=== PATIENT | male | born 1960 | race Caucasian/White ===

== ENCOUNTER 2016-10-14 11:33 | Outpatient (CLI) | payer MEDICAID | END 2016-10-14 11:34 | disposition home or self-care (01) | DX: R05 Cough (principal); R91.8 Other nonspecific abnormal finding of lung field ==

== ENCOUNTER 2019-05-29 21:05 | Outpatient (CLI) | payer MEDICAID | END 2019-05-29 21:06 | disposition critical access hospital (66) | LOC: EMS 21:05 | PROVIDERS: ATTEND Surgery | DX: R41.82 Altered mental status, unspecified (principal) | CPT/HCPCS: A0425; A0429 ==

== ENCOUNTER 2019-05-29 21:19 | Emergency (ER) | payer MEDICAID ==
[2019-05-29 22:23] LABS: BASOPHILS # (AUTO) 0.1 10^3/uL (0.0-0.1); BASOPHILS % (AUTO) 1.6 %; EOSINOPHILS % (AUTO) 0.3 %; HGB - HEMOGLOBIN 11.9 g/dL (14.0-18.0); LYMPHOCYTES # (AUTO) 1.1 10^3/uL (1.5-3.5); LYMPHOCYTES % (AUTO) 34.6 %; MEAN CORPUSCULAR HGB CONC 34.1 g/dL (32.0-36.0); MEAN CORPUSCULAR VOLUME 96.7 fL (80.0-94.0); MEAN PLATELET VOLUME 10.4 fL (7.4-11.4); MONOCYTES # (AUTO) 0.3 10^3/uL (0.0-1.0); MONOCYTES % (AUTO) 9.4 %; NEUTROPHILS # (AUTO) 1.7 10^3/uL (1.5-6.6); NEUTROPHILS % (AUTO) 53.8 %; PLT - PLATELET COUNT 114 10^3/uL (130-450); RED BLOOD COUNT 3.61 10^6/uL (4.70-6.10); RED CELL DISTRIBUTION WIDTH 13.2 % (12.0-15.0); WHITE BLOOD COUNT 3.2 x10^3/uL (4.8-10.8)
[2019-05-29 22:41] LABS: ALBUMIN 3.8 g/dL (3.2-5.5); ALBUMIN/GLOBULIN RATIO 1.3 (1.0-2.2); BILIRUBIN,TOTAL 0.9 mg/dL (0.2-1.0); CALCIUM 8.6 mg/dL (8.5-10.3); CREATININE 0.6 mg/dL (0.6-1.2); TOTAL PROTEIN 6.8 g/dL (6.7-8.2)
[2019-05-29 23:15] LABS: MUDS CUTOFF CONCENTRATIONS CUTOFF CONC BELOW:
[2019-05-29 23:27] LABS: BILIRUBIN,URINE NEGATIVE (NEGATIVE); GLUCOSE, URINE (UA) NEGATIVE (NEGATIVE); KETONES,URINE (UA) NEGATIVE (NEGATIVE); LEUKOCYTE ESTERASE, URINE NEGATIVE (NEGATIVE); NITRITE,URINE NEGATIVE (NEGATIVE); OCCULT BLOOD,URINE NEGATIVE (NEGATIVE); PH,URINE 5.5 PH (5.0-7.5); PROTEIN,URINE NEGATIVE (NEGATIVE); UROBILINOGEN,URINE 0.2 (NORMAL) E.U./dL (NORMAL)
[2019-05-29 23:29] LABS: CLARITY,URINE CLEAR (CLEAR)
[2019-05-29 23:39] LABS: AMPHETAMINE SCREEN,URINE NEGATIVE (NEGATIVE); BENZODIAZEPINES SCREEN, URINE NEGATIVE (NEGATIVE); COCAINE SCREEN URINE NEGATIVE (NEGATIVE); METHADONE SCREEN, URINE NEGATIVE (NEGATIVE); METHAMPHETAMINES SCREEN, URINE NEGATIVE (NEGATIVE); OPIATE SCREEN, URINE NEGATIVE (NEGATIVE); OXYCODONE SCREEN, URINE NEGATIVE (NEGATIVE); PROPOXYPHENE SCREEN, URINE NEGATIVE (NEGATIVE); TRICYCLIC ANTIDEPRESSANT,URINE NEGATIVE (NEGATIVE)
--- NOTE | 2019-05-29 23:53 | ED Physician Documentation ---
History of Present Illness - Stated complaint Stated Complaint: HBD - Chief complaint Chief Complaint: General - History obtained from History obtained from: Patient, EMS - History of Present Illness Timing: Today - Additonal information Additional information: 58-year-old male with history of alcoholism drinks beer and he states that he had his usual 20 pack of Budweiser today and he was intoxicated enough that he soiled himself and his roommate has kicked him out of the house. He has recently had a DUI. Patient denies any use of hard alcohol and states that he only drinks beer and the last time that he was sober was for about a year and that was 4 years ago. He states that he has gone through withdrawal both in a detox facility and by himself and that he usually stops cold turkey. He has been in treatment previously in 3 different places. Review of Systems Constitutional: denies: Fever Ears: denies: Ear pain Nose: denies: Congestion Throat: denies: Sore throat Cardiac: denies: Chest pain / pressure Respiratory: denies: Dyspnea, Cough GI: denies: Abdominal Pain, Nausea, Vomiting, Constipation, Diarrhea : denies: Dysuria Skin: denies: Rash Musculoskeletal: denies: Neck pain, Back pain, Extremity pain Neurologic: denies: Generalized weakness, Focal weakness, Numbness Psychiatric: denies: Depressed, Suicidal, Homicidal PD PAST MEDICAL HISTORY - Past Medical History Past Medical History: Yes - Past Surgical History Past Surgical History: No - Present Medications Home Medications: Ambulatory Orders Medication Instructions Recorded Confirmed oxyCODONE/ACET 5/325 [Percocet 5 1 - 2 each PO Q6H PRN #15 tablet 03/16/16 mg/325 mg] - Allergies Allergies/Adverse Reactions: Allergies Allergy/AdvReac Type Severity Reaction Status Date / Time No Known Drug Allergies Allergy Verified 03/16/16 19:56 - Social History Does the pt smoke?: Yes Smoking Status: Current every day smoker Does the pt drink ETOH?: Yes ETOH Use: Beer Does the pt have substance abuse?: Yes - Immunizations Immunizations are current?: Yes - POLST Patient has POLST: No PD ED PE NORMAL - Vitals Vital signs reviewed: Yes (hypertensive ) - General General: Alert and oriented X 3, No acute distress, Well developed/nourished - HEENT HEENT: Atraumatic, PERRL, EOMI, Other (dry mucous membranes ) - Neck Neck: Supple, no meningeal sign - Cardiac Cardiac: RRR, No murmur - Respiratory Respiratory: No respiratory distress, Clear bilaterally - Abdomen Abdomen: Soft, Non tender - Back Back: No CVA TTP, No spinal TTP - Derm Derm: Normal color, Warm and dry, No rash - Extremities Extremities: No deformity, Normal ROM s pain, No edema, No calf tenderness / cord - Neuro Neuro: Alert and oriented X 3, 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, No motor deficit, No sensory deficit, Normal speech Eye Opening: Spontaneous Motor: Obeys Commands Verbal: Oriented GCS Score: 15 - Psych Psych: Normal mood, Normal affect Results - Vitals Vitals: Vital Signs - 24 hr 05/29/19 05/30/19 21:20 00:01 Temperature 36.5 C 36.2 C L Heart Rate 68 77 Respiratory 16 18 Rate Blood Pressure 123/83 H 117/90 H O2 Saturation 97 97 Oxygen O2 Source Room air - Labs Labs: Laboratory Tests 05/29/19 05/29/19 05/29/19 22:15 22:15 23:05 WBC 3.2 L RBC 3.61 L Hgb 11.9 L Hct 34.9 L MCV 96.7 H MCH 33.0 H MCHC 34.1 RDW 13.2 Plt Count 114 L MPV 10.4 Neut # (Auto) 1.7 Lymph # (Auto) 1.1 L [place] # (Auto) 0.3 Eos # (Auto) 0.0 Baso # (Auto) 0.1 Absolute Nucleated RBC 0.00 Nucleated RBC % 0.0 Sodium 136 Potassium 3.8 Chloride 97 L Carbon Dioxide 26 Anion Gap 13.0 BUN 5 L Creatinine 0.6 Estimated GFR (MDRD) 138 Glucose 110 H Calcium 8.6 Total Bilirubin 0.9 AST 83 H ALT 50 Alkaline Phosphatase 67 Total Protein 6.8 Albumin 3.8 Globulin 3.0 Albumin/Globulin Ratio 1.3 Lipase 37 Urine Color YELLOW Urine Clarity CLEAR Urine pH 5.5 Ur Specific [place] <=1.005 Urine Protein NEGATIVE Urine Glucose (UA) NEGATIVE Urine Ketones NEGATIVE Urine Occult Blood NEGATIVE Urine Nitrite NEGATIVE Urine Bilirubin NEGATIVE Urine Urobilinogen 0.2 (NORMAL) Ur Leukocyte Esterase NEGATIVE Ur Microscopic Review NOT INDICATED Urine Culture Comments NOT INDICATED Urine Opiates Screen NEGATIVE Ur Oxycodone Screen NEGATIVE Urine Methadone Screen NEGATIVE Ur Propoxyphene Screen NEGATIVE Ur Barbiturates Screen NEGATIVE Ur Tricyclics Screen NEGATIVE Ur Phencyclidine Scrn NEGATIVE Ur Amphetamine Screen NEGATIVE U Methamphetamines Scrn NEGATIVE U Benzodiazepines Scrn NEGATIVE Urine Cocaine Screen NEGATIVE U Cannabinoids Screen NEGATIVE Ethyl Alcohol 401.4 PD MEDICAL DECISION MAKING - ED course Complexity details: reviewed old records, reviewed results, re-evaluated patient, considered differential, d/w patient ED course: 58-year-old alcoholic male presents to the emergency department with acute intoxication and that he has been kicked out of his house. He indicates that he does pay rent there but his name is not on the lease and a friend has offered to take the patient in this evening. The patient wishes to leave the emergency department he states that he does understand that he will need to stop drinking and he is given resources for alcohol treatment. He refuses intravenous banana bag. The patient examination is done after the patient has been in the department for several hours and despite a blood alcohol of 401 the patient is conversant and not slurring his speech and making sense. He is discharged into the care of a friend. Departure - Departure Disposition: 01 Home, Self Care Clinical Impression: Alcohol intoxication Qualifiers: Complication of substance-induced condition: uncomplicated Qualified Code(s): F10.920 - Alcohol use, unspecified with intoxication, uncomplicated Condition: Stable Instructions: ED Alcohol Intoxication Follow-Up: [facility] [Provider Group] Discharge Date/Time: 05/29/19 23:56
[2019-05-30 00:01] VITALS: BP 117/90
== END 2019-05-29 23:56 | disposition home or self-care (01) ==
LOC: EDUNIT# → ED 21:19
DX: F10.229 Alcohol dependence with intoxication, unspecified (principal); Y90.8 Blood alcohol level of 240 mg/100 ml or more; F17.200 Nicotine dependence, unspecified, uncomplicated
CPT/HCPCS: 36415; 80053; 80306; 80320; 81001; 81003; 83690; 85025; 87086; 99283; 99284

== ENCOUNTER 2024-05-21 14:15 | Outpatient (CLI) | payer SELFPAY ==
--- NOTE | 2024-05-21 16:58 | XRAY Report ---
PROCEDURE: Hand 1-2V RT INDICATIONS: PAIN IN RIGHT HAND TECHNIQUE: 2 views of the hand(s) acquired. COMPARISON: None. FINDINGS: Bones: No acute fracture or dislocation. Mild diffuse IP joint space narrowing and tiny juxta-articul ar osteophytosis. No osseous erosions. Soft tissues: No suspicious soft tissue calcifications or masses. IMPRESSION: 1.No acute bony abnormality. If pain persists with conservative management, consider repeat radiograp hs in 10-14 days or cross-sectional imaging. 2.Mild diffuse IP joint osteoarthritis. Reviewed by: Lucy Augustine MD on 05/21/2024 3:57 PM AKDT Approved by: Lucy Augustine MD on 05/21/2024 3:57 PM AKDT Station ID: [id number]
--- NOTE | 2024-05-21 17:03 | XRAY Report ---
PROCEDURE: Wrist 1-2V RT INDICATIONS: PAIN IN RIGHT WRIST TECHNIQUE: 2 views of the wrist were acquired. COMPARISON: None. FINDINGS: Bones: No fractures or dislocations. Increased sclerosis of the lunate with collapse. Mild first CM C joint space narrowing and articular osteophytosis. Mild narrowing of the radiocarpal joint. No susp icious bony lesions. Soft tissues: No suspicious soft tissue calcifications or masses. IMPRESSION: 1.No acute bony abnormality. If there is anatomic snuff box tenderness, consider wrist immobilization and repeat radiographs in 10-14 days or cross-sectional imaging now. If pain persists with conservat omar management, consider repeat radiographs in 10-14 days or cross-sectional imaging. 2.Increased sclerosis of the lunate with collapse compatible with osteonecrosis (Kienbock's disease). 3.Mild first CMC joint osteoarthritis. Mild radiocarpal joint space narrowing. Reviewed by: Lucy Augustine MD on 05/21/2024 4:02 PM SARA Approved by: Lucy Augustine MD on 05/21/2024 4:02 PM SARA Station ID: [id number]
== END 2024-05-21 14:30 | disposition home or self-care (01) ==
LOC: DI.N 14:15
PROVIDERS: ATTEND Physician Assistant
DX: M19.041 Primary osteoarthritis, right hand (principal); M18.11 Unilateral primary osteoarthritis of first carpometacarpal joint, right hand; M89.8X3 Other specified disorders of bone, forearm

== ENCOUNTER 2025-01-02 21:09 | Inpatient (IN) ==
[2025-01-03 00:36] LABS: ALBUMIN 3.8 g/dL (3.2-5.5); CALCIUM 9.7 mg/dL (8.5-10.3); CARBON DIOXIDE - CO2 18 mmol/L (21-32); CHLORIDE 92 mmol/L (101-111); POTASSIUM 3.8 mmol/L (3.5-4.5); SODIUM 128 mmol/L (135-145)
[2025-01-03 00:41] LABS: ETOH - ETHANOL < 10.0 mg/dL
[2025-01-03 00:45] LABS: ALBUMIN/GLOBULIN RATIO 1.5 (1.0-2.2); ALKALINE PHOSPHATASE 72 IU/L (42-121); ALT ALANINE AMINOTRANSFERASE 50 IU/L (10-60); AST ASPARTATE AMINOTRANSFERASE 72 IU/L (10-42); BUN - BLOOD UREA NITROGEN 22 mg/dL (6-20); CK- CREATINE KINASE 1536 IU/L (30-223); CREATININE 0.7 mg/dL (0.6-1.3); GFR - MDRD 114 (>89); GLUCOSE 67 mg/dL (74-104); LIPASE < 10 U/L (11-82); TOTAL PROTEIN 6.3 g/dL (6.4-8.9)
[2025-01-03] MEDS: SODIUM CHLORIDE 0.9% 1,000 ML IV STA ×2 (01:02→01:30)
--- NOTE | 2025-01-03 01:45 | CT Report ---
PROCEDURE: CT Cervical Spine WO INDICATIONS: Found down, +etoh TECHNIQUE: Noncontrast 3 mm thick sections acquired from the skull base to the T4 level. Sagittal and coronal r eformats were then constructed. For radiation dose reduction, the following was used: automated exp osure control, adjustment of mA and/or kV according to patient size. COMPARISON: 01/01/2025 FINDINGS: Image quality: Excellent. Bones: No fractures or dislocations. Visualized superior ribs are intact. Soft tissues: Prevertebral soft tissues are normal in thickness. No paravertebral hematomas. No ap ical pneumothoraces. Peripheral groundglass in the right lung apex. IMPRESSION: No acute, displaced fracture or traumatic subluxation. Groundglass opacities in the right lung apex, suggestive of viral/atypical pneumonia. Reviewed by: Artemio Hearn MD on 01/03/2025 1:44 AM PDT Approved by: Artemio Hearn MD on 01/03/2025 1:44 AM PDT Station ID: [id number]
--- NOTE | 2025-01-03 01:47 | CT Report ---
PROCEDURE: CT Head WO INDICATIONS: Head trauma, +Etoh TECHNIQUE: Noncontrast 4.5 mm thick angled axial sections acquired from the foramen magnum to the vertex. For r adiation dose reduction, the following was used: automated exposure control, adjustment of mA and/or kV according to patient size. COMPARISON: 01/01/2025 FINDINGS: Image quality: Excellent. CSF spaces: Basal cisterns are patent. No extra-axial fluid collections. Ventricles are normal in size and shape. Brain: No midline shift. No intracranial mass effect or hemorrhage. Kimball-white matter interface is normal. Skull and face: Calvarium and visualized facial bones are intact, without suspicious lesions. Sinuses: Visualized sinuses and mastoids are clear. IMPRESSION: No acute intracranial pathology. Reviewed by: Artemio Hearn MD on 01/03/2025 1:46 AM PDT Approved by: Artemio Hearn MD on 01/03/2025 1:46 AM PDT Station ID: [id number]
--- NOTE | 2025-01-03 04:15 | ED Physician Documentation ---
History of Present Illness Stated complaint Stated Complaint: FALL Chief complaint Chief Complaint: Trauma Hd/Nk Additonal information Additional information: 64-year-old male brought in by police after being found down near the [facility] land in. Known history of alcohol abuse. 2 previous ER evaluations over the course of the last 2 days for altered mentation and alcohol related complaints. Patient alert, orientated x 2, GCS 14. Denies head injury but has notable hematoma to scalp. History limited by altered mentation. [place] Coma Scale Assess Eye opening: Spontaneous Verbal response: Confused Motor response: Obeys Commands Total score: 14 Review of Systems Status of ROS: unobtainable due to mental status Meds/Allgy Home Medications Ambulatory Orders Medication Instructions Recorded Confirmed No Known Home Medications 01/01/25 01/01/25 Allergies Allergies Allergy/AdvReac Type Severity Reaction Status Date / Time No Known Drug Allergies Allergy Verified 01/02/25 21:14 PFSH Active Problems All Active Problems (Updated 01/03/25 @ 04:33 by Roderick Guardado MD) Closed head injury (Acute) Alcohol abuse (Acute) Alcohol withdrawal (Acute) Acute alteration in mental status (Acute) Medical History Medical History (Updated 01/03/25 @ 04:33 by Roderick Guardado MD) Chronic knee pain Surgical History Surgical History (Updated 01/01/25 @ 08:37 by Parviz Galeano RN) No pertinent past surgical history Social History Social History (Updated 01/01/25 @ 08:37 by Parviz Galeano RN) Smoking Status: Current every day smoker Number of Years Smoked: 40 How many cigarettes a day do you smoke? (20 cigarettes=1 Pk): 40 Do you dip or chew tobacco?: No Do you vape?: No Living arrangement: Other Marital Status: Single Relationship: Level: Independent Do you feel safe in your home environment?: Yes Suffered physical, verbal, emotional, or financial abuse?: No History of Abuse: No ETOH Use: Frequency: Daily Number of Amount/day: 12 Substance Use: denies use POLST Patient has POLST: No Exam Exam Vital Signs: Vital Signs x48h Temp Pulse Resp BP Pulse Ox 01/03/25 01:00 78 22 137/97 H 99 01/02/25 23:20 72 22 127/89 99 01/02/25 21:14 36.8 C 80 18 144/55 H 100 Constitutional normal general appearance HENMT Frontal scalp hematoma. Negative hemotympanum, negative Mac sign, negative raccoon sign. 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 Skin skin color normal Results Vitals Vitals: Vital Signs - 24 hr 01/02/25 21:14 01/02/25 23:20 01/03/25 01:00 Temperature 36.8 C Temperature Source Tympanic Pulse Rate 80 72 78 Respiratory Rate 18 22 22 Blood Pressure 144/55 H 127/89 137/97 H O2 Saturation 100 99 99 Oxygen Delivery Method O2 Source Room air Room air Room air Pain Intensity 0 01/03/25 02:00 Temperature Temperature Source Pulse Rate Respiratory Rate Blood Pressure O2 Saturation Oxygen Delivery Method Room Air O2 Source Pain Intensity Oxygen O2 Source Room air Labs Labs: Laboratory Tests 01/03/25 01/03/25 00:19 04:00 Sodium 128 L 130 L Potassium 3.8 3.6 Chloride 92 L 98 L Carbon Dioxide 18 L 17 L Anion Gap 18.0 H 15.0 H BUN 22 H 19 Creatinine 0.7 0.6 Estimated GFR (MDRD) 114 136 Glucose 67 L 64 L Calcium 9.7 8.3 L Total Bilirubin 2.0 H AST 72 H ALT 50 Alkaline Phosphatase 72 Total Creatine Kinase 1536 H* 1048 H* Total Protein 6.3 L Albumin 3.8 Globulin 2.5 Albumin/Globulin Ratio 1.5 Lipase < 10 L Ethyl Alcohol < 10.0 PD Medical Decision Making ED course Complexity details: reviewed old records, reviewed results, re-evaluated patient, considered differential and d/w patient ED course: 64-year-old with known history of alcohol abuse presents to the emergency department with altered mentation. Found down by police. Multiple recent ER evaluations including 2 in the last 48 hours for alcohol related complaints or falls. Afebrile, hemodynamically stable on arrival to the emergency department. Somewhat confused but no tremulousness, tachycardia, hypertension initially appreciated on arrival. No clear signs alcohol withdrawal on arrival. Lab work with a chronic hyponatremia, mild hypokalemia, and elevated CK. Received [address] head and C-spine are benign. While in the emergency department patient demonstrates increasing confusion now with a CIWA score of 11. I have started a lorazepam protocol for him. He is given thiamine, folic acid. Care discussed with the hospitalist service who graciously agreed to hospitalize for further evaluation and treatment. Discharge Plan Discharge Patient Disposition: 66 [facility] DC/Xfer Clinical Impression: Acute alteration in mental status Alcohol withdrawal Qualifiers: Complication of substance-induced condition: uncomplicated Qualified Code(s): F10.930 - Alcohol use, unspecified with withdrawal, uncomplicated Prescriptions: No Action No Known Home Medications Print Language: Irish
[2025-01-03 04:18] LABS: CALCIUM 8.3 mg/dL (8.5-10.3); CREATININE 0.6 mg/dL (0.6-1.3); POTASSIUM 3.6 mmol/L (3.5-4.5)
[2025-01-03] MEDS ORDERED: FOLIC ACID 5 MG/1 ML 10ML MDV ONE (04:52)
[2025-01-03] MEDS ORDERED: THIAMINE 100 MG/1 ML 2 ML MDV ONE (04:52)
[2025-01-03] MEDS ORDERED: SODIUM CHLORIDE FLUSH 0.9% 10 ML SYRINGE IVP PRN (05:13)
[2025-01-03] MEDS ORDERED: ONDANSETRON 4 MG/2 ML VIAL IVP PRN (05:15)
[2025-01-03] MEDS ORDERED: ONDANSETRON ODT 4 MG TABLET TL PRN (05:15)
[2025-01-03] MEDS ORDERED: LORazepam 1 MG TABLET PO PRN (05:17)
[2025-01-03] MEDS ORDERED: LORazepam 2 MG/ML VIAL IVP PRN (05:17)
[2025-01-03] MEDS: THIAMINE INJ 100 MG, FOLIC ACID INJ 1 MG in SODIUM CHLORIDE 0.9% 1,000 ML IV STA (05:18)
--- NOTE | 2025-01-03 05:29 | HISTORY & PHYSICAL EXAMINATION ---
Chief Complaint Chief Complaint Chief Complaint: AMS, Fall History of Present Illness Admitted From Admitted From:: ER History Obtained From Records Reviewed: Yes History obtained from: Pt, staff, chart Exam Limitations: Virtual exam History of Present Illness HPI Comment/Other: H&P was conducted via video remotely, using [employer]. [place] is in [place] Physician is in [place]. RN is at bedside, helping. 64 yo M with PMH ETOH abuse, tobacco use presented to the ER via Police d/t AMS, Fall. Pt was seen in the ER 2x yesterday. In the AM, EMS brought him to the ER for AMS b/c in public, he was found to be confused with difficuity answering questions, found to be in mild alcohol withdrawal. In the PM, he went to local gas station, bought alcohol, drank the alcohol and then fell down and hit his head. No LOC. Today, the police found him down on the ground and brought him in. Pt says that he tripped on a step and fell down. He hurt his RUE. When he first arrived in ER, his GCS was 14 and he was a little confused.While in the ER, his confusion increased and he became shaky, and his GCS was 11. He was given Ativan and his symptoms improved. He currently denies all other complaints. He denies shakiness, though RN reports that when he stands, he is very shaky and needs 2 person assist to transfer him. Pt says this is new. Pt says that he last remembers drinking ETOH 4 days ago (different than ER story). He is not interested in quitting ETOH. He does not want to go to Rehab for PT or for ETOH W/D. He usually drinks 4 beers/day. He says he has never gone into DTs. He denies cough/CP/SOB/F/c, abdo pain/NV/. In the ER, Na 128, Glc 67, CK [id number], Ethyl ETOH <19 (yesterday, level was 12.3) CT Head: NAD Pt was given IVF, Zofran, Ativan, Tylenol, thiamine in the ER. Review of Systems Status of ROS: 10 or more systems reviewed and unremarkable except as noted in history and below PFSH Active Problems All Active Problems (Updated 01/03/25 @ 04:33 by Roderick Guardado MD) Closed head injury (Acute) Alcohol abuse (Acute) Alcohol withdrawal (Acute) Acute alteration in mental status (Acute) Medical History Medical History (Updated 01/03/25 @ 04:33 by Roderick Guardado MD) Chronic knee pain Surgical History Surgical History (Updated 01/01/25 @ 08:37 by Parviz Galeano, RN) No pertinent past surgical history Social History Social History (Updated 01/01/25 @ 08:37 by Parviz Galeano, RN) Smoking Status: Current every day smoker Number of Years Smoked: 40 How many cigarettes a day do you smoke? (20 cigarettes=1 Pk): 40 Do you dip or chew tobacco?: No Do you vape?: No Living arrangement: Other Marital Status: Single Relationship: Level: Independent Do you feel safe in your home environment?: Yes Suffered physical, verbal, emotional, or financial abuse?: No History of Abuse: No ETOH Use: Frequency: Daily Number of Amount/day: 12 Substance Use: denies use POLST Patient has POLST: No Meds/Allgy Home Medications Ambulatory Orders Medication Instructions Recorded Confirmed No Known Home Medications 01/01/25 01/01/25 Allergies Allergies Allergy/AdvReac Type Severity Reaction Status Date / Time No Known Drug Allergies Allergy Verified 01/02/25 21:14 Exam Exam Vital Signs: Vital Signs x48h Pulse Resp BP Pulse Ox 01/03/25 05:10 77 22 128/78 99 01/03/25 01:00 78 22 137/97 H 99 01/02/25 23:20 72 22 127/89 99 Constitutional normal general appearance HENMT normocephalic Per ER Provider: Frontal scalp hematoma. Negative hemotympanum, negative Mac sign, negative raccoon sign. 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 Conclusion/Plan Problem List (1) Alcohol withdrawal: Plan: Alcohol W/D Alcohol Abuse Tremors AMS Frequent Falls Weakness RUE Wound -Ethyl ETOH <19 (yesterday, level was 12.3) -CT Head: NAD -Pt was given IVF, Zofran, Ativan, Tylenol, thiamine in the ER. -admit to Obs/Med Tele -CIWA protocol with Ativan PRN -MVI, thiamine, Folate -SW consult -pt says he has no interest in Rehab or in stopping ETOH -PT/OT consult -continue RUE wound care Rhabdomyolysis -CK [id number] -continue IVF Hyponatremia -Na 128, chronic -continue IVF Hypoglycemia -Glc 67 -change IVF to D5NS VTE Prophylaxis: SCDs only d/t pt's recent thrombocytopenia Code Status: Full Code ~Federica Wagner MD Hospitalist Qualifiers: Complication of substance-induced condition: uncomplicated Qualified Code(s): F10.930 - Alcohol use, unspecified with withdrawal, uncomplicated Lab Results Lab results reviewed: Yes 01/03/25 04:00
[2025-01-03] MEDS: LORazepam 2 MG/ML VIAL IVP PRN (05:30)
[2025-01-03] MEDS ORDERED: SODIUM CHLORIDE 0.9% 1,000 ML IV SCH (06:00)
[2025-01-03] MEDS: THIAMINE 100 MG TABLET PO SCH (09:18)
[2025-01-03] MEDS: PRENATAL VITAMIN TABLET PO SCH (09:18)
[2025-01-03] MEDS: DEXTROSE 5%-0.9% NACL 1,000 ML IV SCH (09:19)
[2025-01-03] MEDS: SODIUM CHLORIDE FLUSH 0.9% 10 ML SYRINGE IVP SCH (09:19)
--- NOTE | 2025-01-03 12:09 | PHARMACY PROGRESS NOTE ---
Best Possible Medication History Admit Date and Time: 01/03/25 0510 Home Medications Medication Instructions Recorded Confirmed Type No Known Home Medications 01/01/25 01/03/25 History Processed by: Pharmacy Medications reviewed in ED?: No Medication History completed: Yes Patient Interview: Pt unable to participate Secondary Source(s): Caregiver and Insurance records [facility] Statement: As the person ultimately responsible for medication therapy, providers are able to order a medication from an existing home medication list in [facility] via the "Reconcile Routine" prior to Confirmation of that medication by user support specialist. Such practice is discouraged except when the physician, in their clinical judgment, deems that a medical need exists for a medication without regard to previous use.
--- NOTE | 2025-01-03 14:45 | PROVIDER PROGRESS NOTE ---
<Statement entered by Sanjeev Brandon MD - 01/03/25 16:24> I have examined the pt and reviewed the EMR. I agree with the findings and plan of care below with the following additions and corrections. 64 yo M with pmhx of etoh use d/o, tobacco use disorder BIBEMS after found down. Reportedly fell and hit head but no LOC. He has required infrequent doses of ativan overnight and this am. Not eating much. Pt reports mild cough. Feels better. States he lives in [place] and has no family or friends he wants us to contact. On exam: middle aged man sitting in bed, NAD, sclera anicteric, MMM Lungs: diffuse crackles throughout R lung villagran, nonlabored, good air entry RRR, S1S2, no edema alert, slow mentation, oriented to person, year, not president, not city. Poor memory and insight. Answers questions with few word phrases and does not engage much in interview. Follows commands. No tremor or tongue fasciculations. Strength 5/5 UE and LE bilat. Labs and imaging reviewed. 1. etoh use d/o and withdrawal, withdrawal delirium: continue ativan prn per CIWA, thiamine, MVI. Obtain utox. Continue addiction counseling and offer outpt treatment resources as sensorium clears. Appreciate SW help. 2. rhabdomyolysis: mild. CPK 1,500 on arrival and trending down, and this is below the level expected to cause renal injury. He was on the ground for what appears to be a few hours. Continue D5 NS100 ml/hr for now. 3. hyponatremia: likely hypovolemic based on history. Close to euvolemic now. Na improving with ivf. BMP in am. 4. multifocal bacterial pneumonia: may be aspiration given history. COnsider pneumonitis vs pneumonia. Mild leukocytosis, no fever. Start CTX and azithromycin. obtain viral respiratory PCR panel. 5. macrocytic anemia: mild, likely due to etoh. Obtain B12 in am. 6. transaminitis, hyperbilirubinemia: etoh related liver injury. Trend LFT. Obtain RUQ US. Obtain viral hepatitis serologies. dvt ppx: SQH Dispo: Pending improvement in withdrawal delirium, PT/OT eval for weakness. Subjective Prog Note Date Prog Note Date: 01/03/25 Prog Note Time: 11:54 Subjective Pt reports feeling: Improved Subjective: Himanshu is a 64-year-old houseless male with a history of alcohol abuse and tobacco abuse who presented to the ED found down by police at [facility] in [place]. He has AMS, tremors, and nausea. No fever or chills. He visited the ED twice recently on 01/01 d/t altered mentation and alcohol intoxication. History is limited d/t AMS. The patient's CIWA score on admission was 18 and Ativan protocol was started. He was given IV fluids and thiamine in ED. He declined rehab, and has a history of multiple stints in rehab according to his medical record. His head CT was normal. C-spine CT showed ground glass opacities in the apex of right lung, but otherwise negative for C-spine fracture. Patient was ANO x2 with GCS 14 in ED. Current Medications Current Medications Current Medications: Current Medications Generic Name Dose Route Start Last Admin Trade Name Freq PRN Reason Stop Dose Admin Acetaminophen 650 mg 01/03/25 05:15 Acetaminophen 325 Mg Tablet PO Q4HR PRN Pain 1 to 4, or Fever Dextrose/Sodium Chloride 1,000 mls @ 100 mls/hr 01/03/25 06:00 01/03/25 09:19 D5ns IV 100 mls/hr .Q10H GEORGINA Administration Lorazepam 2 mg 01/03/25 04:05 01/03/25 05:30 Lorazepam 2 Mg/Ml Vial IVP 2 mg PRN PRN Administration Alcohol Withdrawal Lorazepam 2 mg 01/03/25 05:17 Lorazepam 2 Mg/Ml Vial IVP Q30M PRN CIWA >8 Protocol Lorazepam 2 mg 01/03/25 05:17 Lorazepam 1 Mg Tablet PO Q1H PRN CIWA > 8 Protocol Ondansetron HCl 4 mg 01/03/25 05:15 Ondansetron Odt 4 Mg Tablet TL Q6HR PRN Nausea / Vomiting Ondansetron HCl 4 mg 01/03/25 05:15 Ondansetron 4 Mg/2 Ml Vial IVP Q6HR PRN Nausea / Vomiting Multivit/Folic Acid/Iron 1 tab 01/03/25 09:00 01/03/25 09:18 Vitamin Tablet PO 1 tab DAILY GEORGINA Administration Sodium Chloride 10 ml 01/03/25 05:13 Sodium Chloride Flush 0.9% 10 Ml Syringe IVP PRN PRN NEEDED PER PROVIDER ORDERS Sodium Chloride 10 ml 01/03/25 09:00 01/03/25 09:19 Sodium Chloride Flush 0.9% 10 Ml Syringe IVP 10 ml 0100,0900,1700 GEOGRINA Administration Thiamine HCl 100 mg 01/03/25 09:00 01/03/25 09:18 Thiamine 100 Mg Tablet PO 100 mg DAILY GEORGINA Administration Objective Vital Signs/Intake & Output Reviewed Vital Signs: Yes Vital Signs: Vital Signs x48h Temp Pulse Pulse Pulse Resp BP BP 01/03/25 08:51 37.3 C 90 22 120/68 01/03/25 06:15 37.8 C 98 22 114/73 01/03/25 05:40 102 H 22 134/79 H 01/03/25 05:10 77 22 128/78 Pulse Ox 01/03/25 08:51 98 01/03/25 06:15 96 01/03/25 05:40 99 01/03/25 05:10 99 Intake & Output: Intake & Output 12/31/24 01/01/25 01/02/25 01/03/25 23:59 23:59 23:59 23:59 Intake Total 3121.2 / 3121.2 Balance 3121.2 / 3121.2 Weight (kg) 72.575 kg Objective General Appearance: positive Mild distress and Other (slightly diaphoretic) Eyes Bilateral: positive PERRL Respiratory: positive Other (Right lung wheezes and crackles, krystal. apex. ) Cardiovascular: positive Regular rate & rhythm Abdomen: positive Non-tender and No distention Skin: positive Color nml and Diaphoresis Extremities: positive Nml appearance and Other (Patient complained of bilateral knee pain.) Neurologic/Psychiatric: positive Disoriented to time, Weakness and Other (ANO x2 Patient could not name current president. ) Lab Results 01/03/25 04:00 Other Labs: Lab Results x24hrs 01/03/25 01/03/25 01/03/25 Range/Units 11:21 04:00 00:19 Sodium 130 L 128 L (135-145) mmol/L Potassium 3.6 3.8 (3.5-4.5) mmol/L Chloride 98 L 92 L (101-111) mmol/L Carbon Dioxide 17 L 18 L (21-32) mmol/L Anion Gap 15.0 H 18.0 H (6-13) BUN 19 22 H (6-20) mg/dL Creatinine 0.6 0.7 (0.6-1.3) mg/dL Estimated GFR (MDRD) 136 114 (>89) Glucose 64 L 67 L (74-104) mg/dL POC Whole Bld Glucose 92 (70-100) mg/dL Calcium 8.3 L 9.7 (8.5-10.3) mg/dL Total Bilirubin 2.0 H (0.2-1.0) mg/dL AST 72 H (10-42) IU/L ALT 50 (10-60) IU/L Alkaline Phosphatase 72 (42-121) IU/L Total Creatine Kinase 1048 H* 1536 H* (30-223) IU/L Total Protein 6.3 L (6.4-8.9) g/dL Albumin 3.8 (3.2-5.5) g/dL Globulin 2.5 (2.1-4.2) g/dL Albumin/Globulin Ratio 1.5 (1.0-2.2) Lipase < 10 L (11-82) U/L Ethyl Alcohol < 10.0 mg/dL Diagnostic Imaging Diagnostic Imaging Results: positive Final report reviewed ABX Reporting Has patient been on IV antibiotics over the past 48 hours?: No Assessment/Plan Problem List (1) Alcohol withdrawal: Impression: Patient was found down after fall and intoxication by police in [place] and brought into ED. His CIWA score was 18 in ED. AW Ativan protocol was started. IV fluids and thiamine were administered in ED. On admission, patient was confused and tremulous. 2mg IV Q30M PRN Ativan, folic acid, thiamine, Tylenol PRN, and ondansetron PRN, and daily vitamin were administered. On exam, patient still has mild tremor, weakness, and is ANOx1--disoriented to place and time. Patient's ethyl alcohol level is currently less than 10.0 Patient's AST to 72 IU/L is elevated d/t chronic alcohol abuse. Patient's total bilirubin was elevated at 2.0 mg/dL d/t chronic alcohol abuse. * We will continue to monitor for improvement in CIWA score, tremor, AMS and * Continue treatment with Ativan per CIWA protocol PRN. * Vitamin replenishment: thiamine, vitamin and folate. * Urine toxicology ordered. * Recheck labs 01/04. Qualifiers: Complication of substance-induced condition: uncomplicated Qualified Code(s): F10.930 - Alcohol use, unspecified with withdrawal, uncomplicated (2) CAP (community acquired pneumonia): Impression: Bilateral infiltrates on CXR indicate likely pneumonia. On exam, patient had wheezing and crackles in both lungs. * Administer IV ceftriaxone and azithromycin PO. * Recheck WBCs and clinical status on 01/04. Qualifiers: Laterality: unspecified laterality Qualified Code(s): J18.9 - Pneumonia, unspecified organism (3) Rhabdomyolysis: Impression: In ED, patient's creatine kinase was elevated at 1536 IU/L, likely due to fall and alcohol abuse. CK decreased to 1048 IU/L. Kidney function was spared: Creatinine 0.6 mg/dL; GFR 136; BUN 19 mg/dL. * We will continue to monitor his kidney function with repeat labs 01/04. Qualifiers: Encounter type: initial encounter Rhabdomyolysis type: traumatic Q ualified Code(s): T79.6XXA - Traumatic ischemia of muscle, initial encounter (4) Hyponatremia: Impression: Patient's sodium on admission was 128 mmol/L, but has increased to 130 mmol/L likely d/t chronic alcohol abuse. He has been given IV fluids. * We will recheck labs on 01/04. (5) High anion gap metabolic acidosis: Impression: Patient's anion gap was 18.0 on admission and is now 15.0, indicating metabolic acidosis possibly due to chronic alcohol abuse. * We will recheck labs 01/04. (6) Closed head injury: Impression: Patient reportedly fell and suffered head injury on 01/01 when he first presented to ED. Head CT was normal. C-spine CT was normal except ground glass opacities in apex of right lung. Qualifiers: Encounter type: initial encounter Qualified Code(s): S09.90XA - Unspecified injury of head, initial encounter (7) Tobacco use disorder: Impression: Patient reportedly smokes 2 packs (40 cigarettes) daily and has for 40 years. * Tobacco cessation counseling will be offered and therapies such as nicotine patches or varenicline Rx. (8) Neutrophilia: Impression: Patient has elevated WBCs (11.1) and neutrophilia (9.7) possibly due to acute lung infection, dehydration. * Patient is being treated with Recheck labs 01/04. (9) Macrocytic anemia: Impression: Patient's hematology labs indicate macrocytic anemia with low hemoglobin, hematocrit, and elevated MCV and MCH due to chronic alcohol abuse. * Patient is dehydrated; recheck labs 01/04. * We will discuss iron supplementation and follow up with PCP.
--- NOTE | 2025-01-03 15:21 | XRAY Report ---
PROCEDURE: XR Chest 1V INDICATIONS: cough, evaluate for infiltrate TECHNIQUE: One view of the chest was acquired. COMPARISON: None. FINDINGS: Surgical changes and devices: None. Lungs and pleura: Moderate patchy multifocal bilateral pulmonary infiltrates in a predominantly gricel hilar and left basilar distribution. No pleural effusions or pneumothorax. Mediastinum: Mediastinal contours appear normal. Heart size is normal. Bones and chest wall: No suspicious bony lesions. Overlying soft tissues appear unremarkable. IMPRESSION: Multifocal bilateral perihilar and left basilar pulmonary infiltrate consistent with pneumonia. Reviewed by: Zack Diaz MD on 01/03/2025 3:20 PM PDT Approved by: Zack Diaz MD on 01/03/2025 3:20 PM PDT Station ID: [id number]
[2025-01-03] MEDS: AZITHROMYCIN 250 MG TABLET PO SCH (19:04)
[2025-01-03] MEDS: cefTRIAXone 1 GM in SODIUM CHLORIDE 0.9% MINIBAG 100 ML IV SCH (19:04)
--- NOTE | 2025-01-03 19:15 | XRAY Report ---
PROCEDURE: XR Knee 3V BL INDICATIONS: knee pain, fall TECHNIQUE: 3 views of the knee(s) were acquired. COMPARISON: None. FINDINGS: Bones: No fractures or dislocations. Mild to moderate bilateral tricompartmental osteoarthritis is s een more notably in bilateral medial femoral tibial compartments as well as right patellofemoral comp artment. No suspicious bony lesions. Soft tissues: Small bilateral knee joint effusion. No suspicious soft tissue calcifications or selena s. IMPRESSION: Mild to moderate bilateral tricompartmental osteoarthritis as above. No acute fracture or dislocation . Small bilateral suprapatellar joint effusion. Reviewed by: Bob Carey MD on 01/03/2025 7:14 PM PDT Approved by: Bob Carey MD on 01/03/2025 7:14 PM PDT Station ID: [id number]
[2025-01-03] MEDS: HEPARIN 5,000 UNIT/ML VIAL SUBQ SCH (21:51)
--- NOTE | 2025-01-03 22:08 | Ultrasound Report ---
PROCEDURE: US Abdomen Limited INDICATIONS: transaminitis, etoh use TECHNIQUE: Real-time focused scanning was performed of the abdomen, with image documentation. COMPARISONS: None. FINDINGS: Liver: Increased liver echogenicity, with posterior attenuation, most consistent with moderate to se barb hepatic steatosis. Gallbladder: No gallstones, sludge, wall thickening or pericholecystic edema. Contracted. Biliary ducts: Intrahepatic bile ducts are non-dilated. Extrahepatic bile duct caliber measures 4 m m. Normal is 6-7 mm or less in diameter, or 10 mm or less post-cholecystectomy. Pancreas: Not well visualized due to overlying bowel gas. Right kidney: Normal in size and echotexture. Right kidney measures 10.5 cm long. No hydronephrosis or nephrolithiasis. No solid masses. No complex renal cystic lesions which require follow-up. IVC: Intrahepatic inferior vena cava is patent. Miscellaneous: No free abdominal fluid. IMPRESSION: No gallbladder pathology. Pancreas not well-visualized; ultrasound is insensitive for pancreatic pathology. Marked hepatic steatosis. Reviewed by: Artemio Hearn MD on 01/03/2025 10:07 PM PDT Approved by: Artemio Hearn MD on 01/03/2025 10:07 PM PDT Station ID: [id number]
[2025-01-04 04:59] LABS: BASOPHILS % (AUTO) 0.1 %; EOSINOPHILS % (AUTO) 0.3 %; HCT - HEMATOCRIT 28.6 % (42.0-52.0); HGB - HEMOGLOBIN 10.3 g/dL (14.0-18.0); LYMPHOCYTES # (AUTO) 0.7 10^3/uL (1.5-3.5); LYMPHOCYTES % (AUTO) 9.4 %; MEAN CORPUSCULAR HEMOGLOBIN 34.7 pg (27.0-31.0); MEAN CORPUSCULAR VOLUME 96.3 fL (80.0-94.0); MEAN PLATELET VOLUME 10.7 fL (7.4-11.4); MONOCYTES # (AUTO) 0.9 10^3/uL (0.0-1.0); MONOCYTES % (AUTO) 12.2 %; NEUTROPHILS # (AUTO) 5.6 10^3/uL (1.5-6.6); NEUTROPHILS % (AUTO) 77.4 %; PLT - PLATELET COUNT 127 10^3/uL (130-450); RED BLOOD COUNT 2.97 10^6/uL (4.70-6.10); RED CELL DISTRIBUTION WIDTH 12.2 % (12.0-15.0); WHITE BLOOD COUNT 7.3 x10^3/uL (4.8-10.8)
[2025-01-04 05:11] LABS: ALBUMIN 2.6 g/dL (3.2-5.5); ALBUMIN/GLOBULIN RATIO 1.3 (1.0-2.2); BILIRUBIN,TOTAL 0.9 mg/dL (0.2-1.0); CALCIUM 7.7 mg/dL (8.5-10.3); CREATININE 0.4 mg/dL (0.6-1.3); MAGNESIUM 1.6 mg/dL (1.7-2.3); POTASSIUM 2.8 mmol/L (3.5-4.5); TOTAL PROTEIN 4.6 g/dL (6.4-8.9)
[2025-01-04 05:26] LABS: B. PARAPERTUSSIS- RESP PCR PAN NOT DETECTED; B. PERTUSSIS- RESP PCR PANEL NOT DETECTED; C. PNEUMONIAE- RESP PCR PANEL NOT DETECTED; CORONAVIRUS 229E-RESP PCR NOT DETECTED; CORONAVIRUS HKU1-RESP PCR NOT DETECTED; CORONAVIRUS NL63-RESP PCR NOT DETECTED; CORONAVIRUS OC43-RESP PCR NOT DETECTED; HUMAN METAPNEUMOVIRUS NOT DETECTED; INFLUENZA A- RESP PCR PANEL NOT DETECTED; INFLUENZA B - RESP PCR PANEL NOT DETECTED; M. PNEUMONIAE- RESP PCR PANEL NOT DETECTED; PARAINFLUENZA VIRUS 1 NOT DETECTED; PARAINFLUENZA VIRUS 2 NOT DETECTED; PARAINFLUENZA VIRUS 4 NOT DETECTED; RHINOVIRUS/ENTEROVIRUS NOT DETECTED; RSV- RESP PCR PANEL NOT DETECTED; SARS-CoV-2 -RESP PCR PANEL NOT DETECTED
[2025-01-04] MEDS ORDERED: SODIUM CHLORIDE 0.9% 0 ML IV ONE (08:30)
[2025-01-04] MEDS: POTASSIUM CHLORIDE 20 MEQ TABLET PO ONE (08:31)
[2025-01-04] MEDS: SODIUM CHLORIDE 0.9% 1,000 ML IV SCH (08:31)
[2025-01-04] MEDS: ACETAMINOPHEN 325 MG TABLET PO PRN (08:32)
[2025-01-04] MEDS: MAGNESIUM SULFATE 1 GM in SODIUM CHLORIDE 0.9% 50 ML IV ONE (09:58)
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
--- NOTE | 2025-01-04 14:57 | PT Plan of Care ---
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 Admitted with rhabdo after being found down d/t GLF. Fall with head strike but no LOC; pt was seen in ED on 01/02/25. Upon arrival GCS 14 and repeat GCS 11 in ED with + withdrawal symptoms. Admitted with CIWA protocol. Head CT negative for acute injury and cleared for PT eval. Pt reportedly indep at baseline. Upon PT eval, pt supine in bed, A&Ox4 but benefits from increased time for processing. Follows cueing and overall requires modAx2 for transfers, STS, and stand pivot transfer to chair with FWW. Mod multimodal cueing for safety and sequencing. Overall presents with decreased endurance, activity tolerance and significant gait impairments. Pt may benefit from skilled PT in acute setting to progress balance and gait training. When medically clear, PT rec dc to SNF as pt is far below baseline of indep mobility. GOALS Improve supine to sit to:: Independent Improve sit to stand to:: Independent Improve pivot transfer ability to:: Independent Improve sit to supine to:: Independent Improve gait ability to:: Ind Increase distance walked to (in feet):: 100 PLAN Frequency: 1-2x/day Duration: Until goals are met DISCHARGE RECOMMENDATIONS Discharge Location: Residential Facility Other Discharge Equipment: TBD Transport Needs at Discharge: Wheelchair van
[2025-01-04] MEDS: MAGNESIUM SULFATE 1 GM/2 ML VIAL IVP STA (17:09)
[2025-01-05 01:07] LABS: HBsAG SCREEN Negative (Negative); HCV AB Non Reactive (Non Reactive); HEPATITIS B CORE IGM AB Negative (Negative)
[2025-01-05 05:51] LABS: BASOPHILS % (AUTO) 0.3 %; EOSINOPHILS % (AUTO) 0.6 %; HCT - HEMATOCRIT 28.2 % (42.0-52.0); HGB - HEMOGLOBIN 9.8 g/dL (14.0-18.0); LYMPHOCYTES # (AUTO) 0.8 10^3/uL (1.5-3.5); LYMPHOCYTES % (AUTO) 11.6 %; MEAN CORPUSCULAR HEMOGLOBIN 34.4 pg (27.0-31.0); MEAN CORPUSCULAR HGB CONC 34.8 g/dL (32.0-36.0); MEAN CORPUSCULAR VOLUME 98.9 fL (80.0-94.0); MEAN PLATELET VOLUME 10.5 fL (7.4-11.4); MONOCYTES # (AUTO) 0.9 10^3/uL (0.0-1.0); MONOCYTES % (AUTO) 12.9 %; NEUTROPHILS # (AUTO) 4.8 10^3/uL (1.5-6.6); NEUTROPHILS % (AUTO) 73.5 %; PLT - PLATELET COUNT 127 10^3/uL (130-450); RED BLOOD COUNT 2.85 10^6/uL (4.70-6.10); RED CELL DISTRIBUTION WIDTH 12.3 % (12.0-15.0); WHITE BLOOD COUNT 6.6 x10^3/uL (4.8-10.8)
[2025-01-05 06:05] LABS: ALBUMIN 2.5 g/dL (3.2-5.5); ALBUMIN/GLOBULIN RATIO 1.3 (1.0-2.2); CALCIUM 7.9 mg/dL (8.5-10.3); CREATININE 0.4 mg/dL (0.6-1.3); MAGNESIUM 1.6 mg/dL (1.7-2.3); POTASSIUM 2.8 mmol/L (3.5-4.5); TOTAL PROTEIN 4.5 g/dL (6.4-8.9)
[2025-01-05] MEDS: POTASSIUM CHLORIDE 20 MEQ TABLET PO ONE (08:06)
[2025-01-05] MEDS: MAGNESIUM SULFATE 2 GRAM 2 GM/50 ML BAG IV ONE (08:10)
[2025-01-05] MEDS: POTASSIUM CHLOR 10 MEQ/100 ML 10 MEQ/100 ML BAG IV SCH (08:25)
--- NOTE | 2025-01-05 14:27 | PROVIDER PROGRESS NOTE ---
Subjective Prog Note Date Prog Note Date: 01/05/25 Prog Note Time: 13:29 Subjective Pt reports feeling: No change Subjective: Joseph is a 64-year-old houseless male with a history of alcohol use disorder and tobacco use disorder who presented to the ED via ambulance after being found down by police in [place]. He continues to have fever, chills, wet cough and generalized weakness. His tremor has improved, but he is still battling pneumonia. He denies nausea or vomiting. The physical therapy team reported that he did better today with ambulating with walker assistance. However, ambulating is still challenging for him. The patient was encouraged to get up and move frequently. We discussed treating his dyspnea and hypoxia with Duoneb to promote bronchodilation. He has finished a course of azithromycin and is still on IV Rocephin. We discussed possible sputum culture to identify the pathogen and adjust antibiotic therapy as needed if the patient is able to collect one. Current Medications Current Medications Current Medications: Current Medications Generic Name Dose Route Start Last Admin Trade Name Freq PRN Reason Stop Dose Admin Acetaminophen 650 mg 01/03/25 05:15 01/05/25 08:07 Acetaminophen 325 Mg Tablet PO 650 mg Q4HR PRN Administration Pain 1 to 4, or Fever Albuterol/Ipratropium 3 ml 01/05/25 12:05 Ipratropium/Albuterol 3 Ml Neb INH RTQID PRN Shortness of Air/Wheezing Heparin Sodium (Porcine) 5,000 unit 01/03/25 21:00 01/05/25 08:29 Heparin 5,000 Unit/Ml Vial SUBQ 5,000 unit BID GEORGINA Administration Ceftriaxone Sodium 1 gm/ 100 mls @ 200 mls/hr 01/03/25 16:09 01/05/25 10:05 Sodium Chloride IV Infused DAILY GEORGINA Infusion Lorazepam 2 mg 01/03/25 05:17 Lorazepam 1 Mg Tablet PO Q1H PRN CIWA > 8 Protocol Ondansetron HCl 4 mg 01/03/25 05:15 Ondansetron Odt 4 Mg Tablet TL Q6HR PRN Nausea / Vomiting Multivit/Folic Acid/Iron 1 tab 01/03/25 09:00 01/05/25 08:07 Vitamin Tablet PO 1 tab DAILY GEORGINA Administration Sodium Chloride 10 ml 01/03/25 05:13 Sodium Chloride Flush 0.9% 10 Ml Syringe IVP PRN PRN NEEDED PER PROVIDER ORDERS Sodium Chloride 10 ml 01/03/25 09:00 01/05/25 09:40 Sodium Chloride Flush 0.9% 10 Ml Syringe IVP 10 ml 0100,0900,1700 GEORGINA Administration Thiamine HCl 100 mg 01/03/25 09:00 01/05/25 08:07 Thiamine 100 Mg Tablet PO 100 mg DAILY GEORGINA Administration Objective Vital Signs/Intake & Output Reviewed Vital Signs: Yes Vital Signs: Vital Signs x48h Temp Pulse Resp BP Pulse Ox 01/05/25 08:07 38.2 C H 90 16 118/70 92 Intake & Output: Intake & Output 01/02/25 01/03/25 01/04/25 01/05/25 23:59 23:59 23:59 23:59 Intake Total 4916.2 / 4916.2 5432 / 5432 1850 / 1850 Balance 4916.2 / 4916.2 5432 / 5432 1850 / 1850 Weight (kg) 72.575 kg 81.7 kg Objective General Appearance: positive Alert and Mild distress Eyes Bilateral: positive Normal inspection Respiratory: positive Wheezes and Rales Skin: positive Color nml and No rash Neurologic/Psychiatric: positive Oriented x3 and Mood/affect nml Lab Results 01/05/25 05:26 01/05/25 05:26 Other Labs: Lab Results x24hrs 01/05/25 01/04/25 01/04/25 Range/Units 05:26 18:59 04:22 WBC 6.6 (4.8-10.8) x10^3/uL RBC 2.85 L (4.70-6.10) 10^6/uL Hgb 9.8 L (14.0-18.0) g/dL Hct 28.2 L (42.0-52.0) % MCV 98.9 H (80.0-94.0) fL MCH 34.4 H (27.0-31.0) pg MCHC 34.8 (32.0-36.0) g/dL RDW 12.3 (12.0-15.0) % Plt Count 127 L (130-450) 10^3/uL MPV 10.5 (7.4-11.4) fL Neut # (Auto) 4.8 (1.5-6.6) 10^3/uL Lymph # (Auto) 0.8 L (1.5-3.5) 10^3/uL [place] # (Auto) 0.9 (0.0-1.0) 10^3/uL Eos # (Auto) 0.0 (0.0-0.7) 10^3/uL Baso # (Auto) 0.0 (0.0-0.1) 10^3/uL Absolute Nucleated RBC 0.00 x10^3/uL Nucleated RBC % 0.0 /100WBC Sodium 133 L (135-145) mmol/L Potassium 2.8 L 3.1 L (3.5-4.5) mmol/L Chloride 102 (101-111) mmol/L Carbon Dioxide 28 (21-32) mmol/L Anion Gap 3.0 L (6-13) BUN 4 L (6-20) mg/dL Creatinine 0.4 L (0.6-1.3) mg/dL Estimated GFR (MDRD) 217 (>89) Glucose 107 H (74-104) mg/dL Calcium 7.9 L (8.5-10.3) mg/dL Magnesium 1.6 L (1.7-2.3) mg/dL Total Bilirubin 1.0 (0.2-1.0) mg/dL AST 23 (10-42) IU/L ALT 25 (10-60) IU/L Alkaline Phosphatase 49 (42-121) IU/L Total Protein 4.5 L (6.4-8.9) g/dL Albumin 2.5 L (3.2-5.5) g/dL Globulin 2.0 L (2.1-4.2) g/dL Albumin/Globulin Ratio 1.3 (1.0-2.2) Hepatitis A IgM Ab Negative (Negative) Hep Bs Antigen Negative (Negative) Hep B Core IgM Ab Negative (Negative) Hepatitis C Antibody Non Reactive (Non Reactive) Hepatitis C Interp Comment (.) Diagnostic Imaging Diagnostic Imaging Results: positive Final report reviewed Sepsis Event Note (H) Evaluation Current Stage of Sepsis: Sepsis Possible source of Sepsis: positive Pulmonary Sepsis Criteria Sepsis Criteria: Suspected or Documented, Recorded Heart Rate greater than 90 bpm, Recorded Respiratory Rate greater than 20 and Respiratory: Increasing oxygen requirements Assessment/Plan Problem List (1) Alcohol withdrawal: Impression: Patient is still on Ativan CIWA protocol. Patient's tremor and AMS have improved. -Patient needs walker to ambulate and PT recommended the patient transition to SNF, as he is not independent. -Patient is self-pay and does not have options for SNF without insurance. Qualifiers: Complication of substance-induced condition: uncomplicated Qualified Code(s): F10.930 - Alcohol use, unspecified with withdrawal, uncomplicated (2) CAP (community acquired pneumonia): Impression: Patient continues to have high temperature, chills, dyspnea and cough. He has finished a 3-day course of azithromycin. -Continue on IV Rocephin daily. -Collect sputum culture if possible Qualifiers: Laterality: unspecified laterality Qualified Code(s): J18.9 - Pneumonia, unspecified organism (3) Dehydration: Impression: Patient continues to be dehydrated due to decreased P.O. intake, as well as being found down and rhabdomyolysis on admission. Continue aggressive IVF rehydration (4) Sepsis: Impression: Patient's condition has improved, as he is no longer tachypneic or tachycardic. However, his temperature is still elevated. Qualifiers: Sepsis acute organ dysfunction status: unspecified Sepsis type: sepsis due to unspecified organism Qualified Code(s): A41.9 - Sepsis, unspecified organism (5) Rhabdomyolysis: Impression: Patient's CK and kidney function have improved. He will continue on IVF. -trend creatinine Qualifiers: Encounter type: initial encounter Rhabdomyolysis type: traumatic Q ualified Code(s): T79.6XXA - Traumatic ischemia of muscle, initial encounter (6) Hyponatremia: Impression: Patient's sodium was 133 mg/dL this morning. -Continue IVF and trend in am (7) Hypokalemia: Impression: Patient's potassium is at 2.8 mmol/L. Needs aggressive repletment. -Potassium chloride will be administered -trend in am, continue to encourage P.O. intake (8) Macrocytic anemia: Impression: As a result of chronic alcohol use and malnutrition, patient has low RBCs and H&H, and folate deficiency. His vitamin B12 was elevated at 929 pg/mL. -Continue vitamin and thiamine -Recommend continue supplements after d/c and eventual PCP follow up
[2025-01-05] MEDS: IPRATROPIUM/ALBUTEROL 3 ML NEB INH PRN (23:43)
[2025-01-06 05:59] LABS: BASOPHILS % (AUTO) 0.3 %; EOSINOPHILS # (AUTO) 0.1 10^3/uL (0.0-0.7); EOSINOPHILS % (AUTO) 0.9 %; HGB - HEMOGLOBIN 9.8 g/dL (14.0-18.0); LYMPHOCYTES # (AUTO) 0.8 10^3/uL (1.5-3.5); LYMPHOCYTES % (AUTO) 10.7 %; MEAN CORPUSCULAR HEMOGLOBIN 34.8 pg (27.0-31.0); MEAN CORPUSCULAR VOLUME 99.3 fL (80.0-94.0); MEAN PLATELET VOLUME 10.7 fL (7.4-11.4); MONOCYTES # (AUTO) 1.1 10^3/uL (0.0-1.0); MONOCYTES % (AUTO) 15.5 %; NEUTROPHILS % (AUTO) 71.7 %; PLT - PLATELET COUNT 146 10^3/uL (130-450); RED BLOOD COUNT 2.82 10^6/uL (4.70-6.10); RED CELL DISTRIBUTION WIDTH 12.5 % (12.0-15.0)
[2025-01-06 06:20] LABS: ALBUMIN 2.6 g/dL (3.2-5.5); ALBUMIN/GLOBULIN RATIO 1.2 (1.0-2.2); BILIRUBIN,TOTAL 0.8 mg/dL (0.2-1.0); CALCIUM 8.1 mg/dL (8.5-10.3); CREATININE 0.3 mg/dL (0.6-1.3); MAGNESIUM 1.7 mg/dL (1.7-2.3); TOTAL PROTEIN 4.7 g/dL (6.4-8.9)
[2025-01-06] MEDS: POTASSIUM CHLORIDE 20 MEQ TABLET PO ONE (08:34)
--- NOTE | 2025-01-06 13:40 | PROVIDER PROGRESS NOTE ---
Subjective Prog Note Date Prog Note Date: 01/06/25 Prog Note Time: 12:43 Subjective Pt reports feeling: Worse Subjective: Joseph is a 64-year-old male with a history of AUD, tobacco use disorder, and osteoarthritis in his knees who presented to the emergency department with altered mentation and alcohol withdrawal. In addition, he had an acute multifocal bacterial pneumonia possibly from aspiration, as he was found down by police in [place]. He has been treated with IV Rocephin and azithromycin. He has been in hospital since 01/03 and still has a temperature of 39.7 (103.5) degrees. This morning, he reported that he wanted to get back to his life soon. We discussed resources for Medicaid/Medicare with him to address ongoing health issues after discharge and to connect with primary care. On exam, he appeared ill and diaphoretic still. He still has a wet cough and dyspnea. Current Medications Current Medications Current Medications: Current Medications Generic Name Dose Route Start Last Admin Trade Name Freq PRN Reason Stop Dose Admin Acetaminophen 650 mg 01/03/25 05:15 01/06/25 08:34 Acetaminophen 325 Mg Tablet PO 650 mg Q4HR PRN Administration Pain 1 to 4, or Fever Albuterol/Ipratropium 3 ml 01/05/25 12:05 01/05/25 23:43 Ipratropium/Albuterol 3 Ml Neb INH 3 ml RTQID PRN Administration Shortness of Air/Wheezing Heparin Sodium (Porcine) 5,000 unit 01/03/25 21:00 01/06/25 08:35 Heparin 5,000 Unit/Ml Vial SUBQ 5,000 unit BID GEORGINA Administration Ceftriaxone Sodium 1 gm/ 100 mls @ 200 mls/hr 01/03/25 16:09 01/06/25 09:32 Sodium Chloride IV Infused DAILY GEORGINA Infusion Lorazepam 2 mg 01/03/25 05:17 Lorazepam 1 Mg Tablet PO Q1H PRN CIWA > 8 Protocol Ondansetron HCl 4 mg 01/03/25 05:15 Ondansetron Odt 4 Mg Tablet TL Q6HR PRN Nausea / Vomiting Multivit/Folic Acid/Iron 1 tab 01/03/25 09:00 01/06/25 08:35 Vitamin Tablet PO 1 tab DAILY GEORGINA Administration Sodium Chloride 10 ml 01/03/25 05:13 Sodium Chloride Flush 0.9% 10 Ml Syringe IVP PRN PRN NEEDED PER PROVIDER ORDERS Sodium Chloride 10 ml 01/03/25 09:00 01/06/25 08:35 Sodium Chloride Flush 0.9% 10 Ml Syringe IVP 10 ml 0100,0900,1700 GEORGINA Administration Thiamine HCl 100 mg 01/03/25 09:00 01/06/25 08:35 Thiamine 100 Mg Tablet PO 100 mg DAILY GEORGINA Administration Objective Vital Signs/Intake & Output Reviewed Vital Signs: Yes Vital Signs: Vital Signs x48h Temp Pulse Resp BP Pulse Ox O2 Flow Rate 01/06/25 12:26 39.7 C H 93 19 128/78 92 01/06/25 08:10 37.9 C 85 18 124/70 95 2 01/06/25 05:00 37.0 C 77 20 112/74 95 2 Intake & Output: Intake & Output 01/03/25 01/04/25 01/05/25 01/06/25 23:59 23:59 23:59 23:59 Intake Total 4916.2 / 4916.2 5432 / 5432 4687 / 4687 2009 Output Total 1000 / 1000 Balance 4916.2 / 4916.2 5432 / 5432 4687 / 4687 1010 / 1010 Weight (kg) 81.7 kg Objective General Appearance: positive Alert, Lethargic and Other (diaphoresis) Eyes Bilateral: positive Normal inspection Neurologic/Psychiatric: positive Oriented x3 and Mood/affect nml Lab Results 01/06/25 05:30 01/06/25 05:30 Other Labs: Lab Results x24hrs 01/06/25 Range/Units 05:30 WBC 7.0 (4.8-10.8) x10^3/uL RBC 2.82 L (4.70-6.10) 10^6/uL Hgb 9.8 L (14.0-18.0) g/dL Hct 28.0 L (42.0-52.0) % MCV 99.3 H (80.0-94.0) fL MCH 34.8 H (27.0-31.0) pg MCHC 35.0 (32.0-36.0) g/dL RDW 12.5 (12.0-15.0) % Plt Count 146 (130-450) 10^3/uL MPV 10.7 (7.4-11.4) fL Neut # (Auto) 5.0 (1.5-6.6) 10^3/uL Lymph # (Auto) 0.8 L (1.5-3.5) 10^3/uL Mobile # (Auto) 1.1 H (0.0-1.0) 10^3/uL Eos # (Auto) 0.1 (0.0-0.7) 10^3/uL Baso # (Auto) 0.0 (0.0-0.1) 10^3/uL Absolute Nucleated RBC 0.00 x10^3/uL Nucleated RBC % 0.0 /100WBC Sodium 132 L (135-145) mmol/L Potassium 3.0 L (3.5-4.5) mmol/L Chloride 99 L (101-111) mmol/L Carbon Dioxide 30 (21-32) mmol/L Anion Gap 3.0 L (6-13) BUN 5 L (6-20) mg/dL Creatinine 0.3 L (0.6-1.3) mg/dL Estimated GFR (MDRD) 302 (>89) Glucose 105 H (74-104) mg/dL Calcium 8.1 L (8.5-10.3) mg/dL Magnesium 1.7 (1.7-2.3) mg/dL Total Bilirubin 0.8 (0.2-1.0) mg/dL AST 20 (10-42) IU/L ALT 21 (10-60) IU/L Alkaline Phosphatase 51 (42-121) IU/L Total Protein 4.7 L (6.4-8.9) g/dL Albumin 2.6 L (3.2-5.5) g/dL Globulin 2.1 (2.1-4.2) g/dL Albumin/Globulin Ratio 1.2 (1.0-2.2) Diagnostic Imaging Diagnostic Imaging Results: positive Final report reviewed ABX Reporting Has patient been on IV antibiotics over the past 48 hours?: Yes Sepsis Event Note (H) Evaluation Current Stage of Sepsis: Sepsis Possible source of Sepsis: positive Pulmonary Sepsis Criteria Sepsis Criteria: Suspected or Documented, Recorded Heart Rate greater than 90 bpm, Recorded Respiratory Rate greater than 20 and Respiratory: Increasing oxygen requirements Assessment/Plan Problem List (1) Sepsis: Impression: Patient remains febrile with a temperature as high as 103.5 F. Also now has tachycardia in the low 100s. Continues to be septic. Blood cultures, sputum cultures ordered. MRSA swab ordered. Has received 4 days of IV Rocephin. Completed 3 days of azithromycin. Will switch to Unasyn today to broaden anaerobic coverage. May complete CT scan tomorrow to assess for empyema, etc. Qualifiers: Sepsis acute organ dysfunction status: unspecified Sepsis type: sepsis due to unspecified organism Qualified Code(s): A41.9 - Sepsis, unspecified organism (2) Acute hypoxic respiratory failure: Impression: Patient had a few episodes of desaturations below 90%; placed on 2L NC overnight. Continue to wean as able. (3) Alcohol withdrawal: Impression: Patient has no visible tremor or altered mental status at this time. His CIWA score decreased to 1 and Ativan was discontinued. The patient has a history of alcohol use disorder and previously went through detoxification according to his records. He declined rehabilitation at this time. Qualifiers: Complication of substance-induced condition: uncomplicated Qualified Code(s): F10.930 - Alcohol use, unspecified with withdrawal, uncomplicated (4) CAP (community acquired pneumonia): Impression: See above. Qualifiers: Laterality: unspecified laterality Qualified Code(s): J18.9 - Pneumonia, unspecified organism (5) Rhabdomyolysis: Impression: Patient's creatine kinase decreased to 302 IU/L and his kidney function has improved. IVF stopped today. Encourage oral intake. Qualifiers: Encounter type: initial encounter Rhabdomyolysis type: traumatic Q ualified Code(s): T79.6XXA - Traumatic ischemia of muscle, initial encounter (6) Hyponatremia: Impression: The patient has received IVF and his sodium level is 132 mmol/L and has improved. Encourage oral intake. (7) Hypokalemia: Impression: The patient has received IV potassium and his level is currently 3.0 mmol/L. K- dur 40 mEq ordered today. Continue supplementation and encourage P.O. intake. (8) Macrocytic anemia: Impression: The patient has low RBCs, hemoglobin, hematocrit, and elevated MCH and MCV, likely d/t folate deficiency as a result of chronic alcohol use. He has been receiving a vitamin and thiamine in hospital. -Discuss continuing supplement with folic acid after hospital stay -Encourage patient to find a primary care provider for routine and ongoing healthcare issues including folate deficiency, alcohol dependence, tobacco dependence, and osteoarthritis.
[2025-01-06] MEDS: AMPICILLIN/SULBACTAM 3 GM in SODIUM CHLORIDE 0.9% MINIBAG 100 ML IV SCH (18:09)
[2025-01-06] MEDS: BENZOCAINE/MENTHOL LOZENGE MM PRN (22:06)
[2025-01-06] MEDS ORDERED: PHENOL THROAT SPRAY 177 ML MM PRN (22:52)
[2025-01-07] MEDS: AMPICILLIN/SULBACTAM 3 GM in SODIUM CHLORIDE 0.9% MINIBAG 100 ML IV SCH ×2 (01:44→09:10)
[2025-01-07 05:55] LABS: HCT - HEMATOCRIT 28.7 % (42.0-52.0); HGB - HEMOGLOBIN 9.9 g/dL (14.0-18.0); MEAN CORPUSCULAR HEMOGLOBIN 34.3 pg (27.0-31.0); MEAN CORPUSCULAR HGB CONC 34.5 g/dL (32.0-36.0); MEAN CORPUSCULAR VOLUME 99.3 fL (80.0-94.0); MEAN PLATELET VOLUME 10.2 fL (7.4-11.4); RED BLOOD COUNT 2.89 10^6/uL (4.70-6.10); RED CELL DISTRIBUTION WIDTH 12.7 % (12.0-15.0); WHITE BLOOD COUNT 7.5 x10^3/uL (4.8-10.8)
[2025-01-07 06:27] LABS: CALCIUM 8.2 mg/dL (8.5-10.3); CREATININE 0.3 mg/dL (0.6-1.3); POTASSIUM 3.6 mmol/L (3.5-4.5)
[2025-01-07] MEDS ORDERED: AMPICILLIN/SULBACTAM 3 GM in SODIUM CHLORIDE 0.9% MINIBAG 100 ML IV SCH (12:00)
--- NOTE | 2025-01-07 12:29 | PROVIDER PROGRESS NOTE ---
Subjective Subjective Subjective: This morning, patient states that he feels okay. He is still coughing up quite a bit. With ambulation, he feels short of breath. He denies any fevers, but states that he is occasionally having some chills. He has no nausea or vomiting, and has been eating and drinking well. Current Medications Current Medications Current Medications: Current Medications Generic Name Dose Route Start Last Admin Trade Name Freq PRN Reason Stop Dose Admin Acetaminophen 650 mg 01/07/25 05:13 Acetaminophen 325 Mg Tablet PO Q4HR PRN Pain 1 to 4, or Fever Albuterol/Ipratropium 3 ml 01/05/25 12:05 01/05/25 23:43 Ipratropium/Albuterol 3 Ml Neb INH 3 ml RTQID PRN Administration Shortness of Air/Wheezing Heparin Sodium (Porcine) 5,000 unit 01/03/25 21:00 01/07/25 09:11 Heparin 5,000 Unit/Ml Vial SUBQ 5,000 unit BID GEORGINA Administration Ampicillin Sodium/Sulbactam 100 mls @ 200 mls/hr 01/07/25 09:00 01/07/25 10:34 Sodium 3 gm/ Sodium Chloride IV Infused Q6H GEORGINA Infusion Lorazepam 2 mg 01/03/25 05:17 Lorazepam 1 Mg Tablet PO Q1H PRN CIWA > 8 Protocol Ondansetron HCl 4 mg 01/03/25 05:15 Ondansetron Odt 4 Mg Tablet TL Q6HR PRN Nausea / Vomiting Phenol/Menthol 2 sprays 01/06/25 22:52 Phenol Throat [place] 177 Ml MM Q2HR PRN Throat Pain Multivit/Folic Acid/Iron 1 tab 01/03/25 09:00 01/07/25 09:11 Vitamin Tablet PO 1 tab DAILY GEORGINA Administration Sodium Chloride 10 ml 01/03/25 05:13 Sodium Chloride Flush 0.9% 10 Ml Syringe IVP PRN PRN NEEDED PER PROVIDER ORDERS Sodium Chloride 10 ml 01/03/25 09:00 01/07/25 09:12 Sodium Chloride Flush 0.9% 10 Ml Syringe IVP 10 ml 0100,0900,1700 GEORGINA Administration Thiamine HCl 100 mg 01/03/25 09:00 01/07/25 09:11 Thiamine 100 Mg Tablet PO 100 mg DAILY GEORGINA Administration Throat Lozenges 1 lozenge 01/06/25 20:54 01/07/25 05:11 Benzocaine/Menthol Lozenge MM 1 lozenge Q2HR PRN Administration Throat pain Objective Vital Signs/Intake & Output Reviewed Vital Signs: Yes Vital Signs: Vital Signs x48h Temp Pulse Resp BP Pulse Ox O2 Flow Rate 01/07/25 08:28 98.6 F 76 18 123/75 92 01/07/25 05:00 99.5 F 72 16 137/77 H 92 2 Intake & Output: Intake & Output 01/04/25 01/05/25 01/06/25 01/07/25 23:59 23:59 23:59 23:59 Intake Total 5432 / 5432 4687 / 4687 2710 / 2710 860 / 860 Output Total 1000 / 1000 650 / 650 Balance 5432 / 5432 4687 / 4687 1710 / 1710 210 / 210 Objective General Appearance: positive Alert, Lethargic and Other (diaphoresis) Eyes Bilateral: positive Normal inspection ENT: positive ENT inspection nml, Pharynx nml and No signs of dehydration Neck: positive Nml inspection, Thyroid nml and No JVD Respiratory: positive Chest non-tender and Rales (Diffuse rales noted) Cardiovascular: positive No murmur and Tachycardia; negative Systolic murmur or Diastolic murmur Abdomen: positive Non-tender, No organomegaly, Nml bowel sounds and No distention Back: positive Nml inspection; negative CVA tenderness (R) or CVA tenderness (L) Skin: positive Color nml, No rash, Dry and Diaphoresis Extremities: positive Non-tender, Full ROM, Nml appearance and Calf tenderness Neurologic/Psychiatric: positive Oriented x3, Motor nml and Mood/affect nml Lab Results 01/07/25 05:44 01/07/25 05:44 Other Labs: Lab Results x24hrs 01/07/25 01/06/25 Range/Units 05:44 14:25 WBC 7.5 (4.8-10.8) x10^3/uL RBC 2.89 L (4.70-6.10) 10^6/uL Hgb 9.9 L (14.0-18.0) g/dL Hct 28.7 L (42.0-52.0) % MCV 99.3 H (80.0-94.0) fL MCH 34.3 H (27.0-31.0) pg MCHC 34.5 (32.0-36.0) g/dL RDW 12.7 (12.0-15.0) % Plt Count 164 (130-450) 10^3/uL MPV 10.2 (7.4-11.4) fL Sodium 132 L (135-145) mmol/L Potassium 3.6 (3.5-4.5) mmol/L Chloride 98 L (101-111) mmol/L Carbon Dioxide 29 (21-32) mmol/L Anion Gap 5.0 L (6-13) BUN 5 L (6-20) mg/dL Creatinine 0.3 L (0.6-1.3) mg/dL Estimated GFR (MDRD) 302 (>89) Glucose 106 H (74-104) mg/dL Calcium 8.2 L (8.5-10.3) mg/dL Nasal Screen MRSA (PCR) NEGATIVE (NEGATIVE) Diagnostic Imaging Diagnostic Imaging Results: positive Final report reviewed ABX Reporting Has patient been on IV antibiotics over the past 48 hours?: Yes Sepsis Event Note (H) Evaluation Current Stage of Sepsis: Sepsis Possible source of Sepsis: positive Pulmonary Sepsis Criteria Sepsis Criteria: Suspected or Documented, Recorded Heart Rate greater than 90 bpm, Recorded Respiratory Rate greater than 20 and Respiratory: Increasing oxygen requirements Assessment/Plan Problem List (1) Sepsis: Impression: Patient continues with fever, as well as tachycardia. White blood cell count is within normal limits. Blood cultures are no growth to date. Yesterday, we had escalated from Rocephin and azithromycin to Unasyn to cover for aspiration pneumonia, and further anaerobic coverage. We did do a MRSA swab, and that was negative. She continues to spike fevers. Plan is to order CT chest to assess for parapneumonic effusion versus empyema. Qualifiers: Sepsis acute organ dysfunction status: unspecified Sepsis type: sepsis due to unspecified organism Qualified Code(s): A41.9 - Sepsis, unspecified organism (2) Acute hypoxic respiratory failure: Impression: Resolving. Patient had a few episodes of desaturations below 90%; placed on 2L NC overnight. Continue to wean as able. (3) Alcohol withdrawal: Impression: Patient has no visible tremor or altered mental status at this time. His CIWA score decreased to 1 and Ativan was discontinued. The patient has a history of alcohol use disorder and previously went through detoxification according to his records. He declined rehabilitation at this time. Qualifiers: Complication of substance-induced condition: uncomplicated Qualified Code(s): F10.930 - Alcohol use, unspecified with withdrawal, uncomplicated (4) CAP (community acquired pneumonia): Impression: See above. Qualifiers: Laterality: unspecified laterality Qualified Code(s): J18.9 - Pneumonia, unspecified organism (5) Rhabdomyolysis: Impression: Patient's creatine kinase decreased to 302 IU/L and his kidney function has improved. IVF stopped. Encourage oral intake. Qualifiers: Encounter type: initial encounter Rhabdomyolysis type: traumatic Q ualified Code(s): T79.6XXA - Traumatic ischemia of muscle, initial encounter (6) Hyponatremia: Impression: The patient has received IVF and his sodium level has improved. Encourage oral intake. (7) Hypokalemia: Impression: The patient has received IV potassium as well as oral. Continue supplementation and encourage P.O. intake. (8) Macrocytic anemia: Impression: The patient has low RBCs, hemoglobin, hematocrit, and elevated MCH and MCV, likely d/t folate deficiency as a result of chronic alcohol use. Continue folic acid supplementation in vitamin.
[2025-01-07] MEDS: ACETAMINOPHEN 325 MG TABLET PO PRN (14:35)
[2025-01-07] MEDS ORDERED: iohexoL-300 100 ML VIAL ONE (16:31)
[2025-01-07] MEDS: iohexoL-300 100 ML VIAL IVP ONE (17:45)
--- NOTE | 2025-01-07 20:13 | CT Report ---
PROCEDURE: CT Chest W INDICATIONS: TO CONTRAST: omni 300, 100 TECHNIQUE: After the administration of intravenous contrast, a CT scan of the chest was performed. Images were recorded and evaluated at appropriate window settings. Reformats: axial MIP of the chest, coronal and sagittal. For radiation dose reduction, the following was used: automated exposure control, adjustme nt of mA and/or kV according to patient size. COMPARISON: None. FINDINGS: Image quality: Diagnostic. Chest wall and lower neck: No thyroid nodule which requires sonographic follow up. No breast mass. No axillary or supraclavicular adenopathy by size. Lungs and pleura: Small pleural effusions. Diffuse groundglass opacities in the upper lobes. No suspi cious pulmonary nodule. Mediastinum: Heart size is enlarged. No pericardial effusion. No large vessel abnormality. No mediast inal adenopathy by size criteria. 2 vessel coronary calcifications. Bones: No aggressive osseous abnormality. Upper Abdomen: Moderate steatosis of the liver. IMPRESSION: Diffuse chronic glass in the upper lobes, concerning for pneumonitis, drug reaction, atypical infecti on. Small pleural effusions. Marked coronary artery calcifications for age. Correlate with risk factors and advise counseling. Reviewed by: Artemio Hearn MD on 01/07/2025 8:11 PM PDT Approved by: Artemio Hearn MD on 01/07/2025 8:11 PM PDT Station ID: [id number]
[2025-01-08 08:15] VITALS: BP 133/76; TEMP 98.4; O2SAT 93
--- NOTE | 2025-01-08 08:59 | PROVIDER PROGRESS NOTE ---
Current Medications Current Medications Current Medications: Current Medications Generic Name Dose Route Start Last Admin Trade Name Freq PRN Reason Stop Dose Admin Acetaminophen 650 mg 01/07/25 05:13 01/08/25 08:35 Acetaminophen 325 Mg Tablet PO 650 mg Q4HR PRN Administration Pain 1 to 4, or Fever Albuterol/Ipratropium 3 ml 01/05/25 12:05 01/08/25 01:45 Ipratropium/Albuterol 3 Ml Neb INH 3 ml RTQID PRN Administration Shortness of Air/Wheezing Heparin Sodium (Porcine) 5,000 unit 01/03/25 21:00 01/08/25 08:36 Heparin 5,000 Unit/Ml Vial SUBQ 5,000 unit BID GEORGINA Administration Ampicillin Sodium/Sulbactam 100 mls @ 200 mls/hr 01/07/25 09:00 01/08/25 08:35 Sodium 3 gm/ Sodium Chloride IV 200 mls/hr Q6H GEORGINA Administration Lorazepam 2 mg 01/03/25 05:17 Lorazepam 1 Mg Tablet PO Q1H PRN CIWA > 8 Protocol Ondansetron HCl 4 mg 01/03/25 05:15 Ondansetron Odt 4 Mg Tablet TL Q6HR PRN Nausea / Vomiting Phenol/Menthol 2 sprays 01/06/25 22:52 Phenol Throat [place] 177 Ml MM Q2HR PRN Throat Pain Multivit/Folic Acid/Iron 1 tab 01/03/25 09:00 01/08/25 08:36 Vitamin Tablet PO 1 tab DAILY GEORGINA Administration Sodium Chloride 10 ml 01/03/25 05:13 Sodium Chloride Flush 0.9% 10 Ml Syringe IVP PRN PRN NEEDED PER PROVIDER ORDERS Sodium Chloride 10 ml 01/03/25 09:00 01/08/25 08:36 Sodium Chloride Flush 0.9% 10 Ml Syringe IVP 10 ml 0100,0900,1700 GEORGINA Administration Thiamine HCl 100 mg 01/03/25 09:00 01/08/25 08:36 Thiamine 100 Mg Tablet PO 100 mg DAILY GEORGINA Administration Throat Lozenges 1 lozenge 01/06/25 20:54 01/07/25 14:35 Benzocaine/Menthol Lozenge MM 1 lozenge Q2HR PRN Administration Throat pain Objective Vital Signs/Intake & Output Vital Signs: Vital Signs x48h Temp Pulse Pulse Resp BP Pulse Ox O2 Flow Rate 01/08/25 08:14 98.4 F 70 18 133/76 H 93 01/08/25 05:00 98.2 F 67 15 123/65 97 2 01/08/25 01:45 78 20 2 01/08/25 01:36 75 24 112/61 96 2 01/08/25 01:00 98.8 F 81 18 112/62 92 2 Intake & Output: Intake & Output 01/05/25 01/06/25 01/07/25 01/08/25 23:59 23:59 23:59 23:59 Intake Total 4687 / 4687 2710 / 2710 2140 / 2140 580 / 580 Output Total 1000 / 1000 800 / 800 Balance 4687 / 4687 1710 / 1710 1340 / 1340 580 / 580 Lab Results 01/07/25 05:44 01/07/25 05:44 Sepsis Event Note (H) Evaluation Current Stage of Sepsis: Sepsis Possible source of Sepsis: positive Pulmonary Sepsis Criteria Sepsis Criteria: Suspected or Documented, Recorded Heart Rate greater than 90 bpm, Recorded Respiratory Rate greater than 20 and Respiratory: Increasing oxygen requirements Assessment/Plan Problem List (1) Sepsis: Qualifiers: Sepsis type: sepsis due to unspecified organism Sepsis acute organ dysfunction status: unspecified Qualified Code(s): A41.9 - Sepsis, unspecified organism (2) Acute hypoxic respiratory failure: (3) Alcohol withdrawal: Qualifiers: Complication of substance-induced condition: uncomplicated Qualified Code(s): F10.930 - Alcohol use, unspecified with withdrawal, uncomplicated (4) CAP (community acquired pneumonia): Qualifiers: Laterality: unspecified laterality Qualified Code(s): J18.9 - Pneumonia, unspecified organism (5) Rhabdomyolysis: Qualifiers: Rhabdomyolysis type: traumatic Encounter type: initial encounter Q ualified Code(s): T79.6XXA - Traumatic ischemia of muscle, initial encounter (6) Hyponatremia: (7) Hypokalemia: (8) Macrocytic anemia:
--- NOTE | 2025-01-08 11:37 | Discharge Summary ---
"Discharge Summary Admit Date: 01/03/25 Discharge Date: 01/08/25 Discharging Provider: Dr. Ana Riley Primary Care Provider: None Code Status: Attempt Resuscitation Discharge Facility Name: Home, self care DIAGNOSES Admission Diagnoses: Alcohol drawl Rhabdomyolysis Hyponatremia Hypoglycemia Discharge Diagnoses with Status of Each Condition: Sepsispatient had a fever, as well as tachycardia. Chest CT showed diffuse inflammation. Patient received 6 days of IV antibiotics, initially for community-acquired pneumonia and this was broadened to include anaerobes with Unasyn. Would like him to complete a longer course of antibiotics with 4 more days of oral Augmentin, on discharge. He is now normotensive, has normal heart rate, and has been afebrile for about 24 hours. He is okay to go home. Acute hypoxic respiratory failureresolved. Alcohol withdrawalresolved. Pneumoniasee above. Rhabdomyolysisresolved. Natremiaresolved. Hypokalemiaresolved. Macrocytic anemiastable. Continue folic acid supplementation on discharge, prescribed. HPI History of Present Illness: Per Dr. Wagner: 64 yo M with H ETOH abuse, tobacco use presented to the ER via Police d/t AMS, Fall. Pt was seen in the ER 2x yesterday. In the AM, EMS brought him to the ER for AMS b/c in public, he was found to be confused with difficuity answering questions, found to be in mild alcohol withdrawal. In the PM, he went to local gas station, bought alcohol, drank the alcohol and then fell down and hit his head. No LOC. Today, the police found him down on the ground and brought him in. Pt says that he tripped on a step and fell down. He hurt his RUE. When he first arrived in ER, his GCS was 14 and he was a little confused.While in the ER, his confusion increased and he became shaky, and his GCS was 11. He was given Ativan and his symptoms improved. He currently denies all other complaints. He denies shakiness, though RN reports that when he stands, he is very shaky and needs 2 person assist to transfer him. Pt says this is new. Pt says that he last remembers drinking ETOH 4 days ago (different than ER story). He is not interested in quitting ETOH. He does not want to go to Rehab for PT or for ETOH W/D. He usually drinks 4 beers/day. He says he has never gone into DTs. He denies cough/CP/SOB/F/c, abdo pain/NV/. In the ER, Na 128, Glc 67, CK [id number], Ethyl ETOH <19 (yesterday, level was 12.3) CT Head: NAD Pt was given IVF, Zofran, Ativan, Tylenol, thiamine in the ER. CONSULTS | PROCEDURES Consultations: - Procedures: Chest x-ray, CT chest HOSPITAL COURSE Hospital Course: Patient is a 64-year-old male with a history of poor follow-up, chronic alcohol use who presented after being found confused and then found down by the police. He initially underwent acute alcohol withdrawal. He then started developing some shortness of breath, fevers, chills. Chest x-ray revealed patchy infiltrates, concerns for pneumonitis versus aspiration pneumonia, especially after he was being found down. His CPK was also elevated admission, and he received IV fluids. He was severely dehydrated on admission. He continued to spike fevers as high as 103, and is tachycardic, meeting sepsis criteria. We kept him here for IV antibiotics. His sepsis criteria this morning has resolved. I would like him to continue a 10-day course of antibiotics, so sent 4 more days of oral antibiotics to his pharmacy. He was advised extensively to abstain from drinking alcohol, take his thiamine, vitamin as well. He was also advised to follow-up with a primary care provider in the next 1 to 2 weeks. Demonstrated understanding, and felt better, and as such, was deemed stable for discharge home. ALLERGIES Allergies Allergy/AdvReac Type Severity Reaction Status Date / Time No Known Drug Allergies Allergy Verified 01/02/25 21:14 MEDICATIONS Ambulatory Orders Medication Instructions Recorded Confirmed No Known Home Medications 01/01/25 01/03/25 amoxicillin 875 mg-potassium 1 tab PO BID 4 days #8 tabs 01/08/25 clavulanate 125 mg tablet vit,calcium 27-ferrous 1 tab PO DAILY #30 tabs 01/08/25 fum 60 mg iron-folic acid 1 mg tablet (Trinatal Rx 1) thiamine mononitrate (vit B1) 100 100 mg PO DAILY #30 tabs 01/08/25 mg tablet PHYSICAL EXAM AT DISCHARGE Vital Signs: Vital Signs x48h Temp Pulse Resp BP Pulse Ox 01/08/25 08:14 98.4 F 70 18 133/76 H 93 General Appearance: positive No acute distress and Alert; negative Anxious Eyes Bilateral: positive Normal inspection, PERRL and EOMI ENT: positive ENT inspection nml, Pharynx nml and No signs of dehydration Neck: positive Nml inspection, Thyroid nml, No JVD and Trachea midline Respiratory: positive Chest non-tender, No respiratory distress, Breath sounds nml and Rales (mild and improving); negative Wheezes or Rhonchi Cardiovascular: positive Regular rate & rhythm, No murmur and No gallop; negative Tachycardia Peripheral Pulses: positive 2+ Abdomen: positive Non-tender, No organomegaly, Nml bowel sounds and No distention; negative Guarding, Hepatomegaly or Splenomegaly Back: positive Nml inspection; negative CVA tenderness (R) or CVA tenderness (L) Skin: positive Color nml, No rash, Warm and Dry Extremities: positive Non-tender, Full ROM and No pedal edema Neurologic/Psychiatric: positive Oriented x3, Motor nml, Sensation nml and Mood/affect nml LABS 01/07/25 05:44 01/07/25 05:44 DIAGNOSTIC IMAGING Diagnostic Imaging Results: Final report reviewed SEPSIS Current Stage of Sepsis: Resolved (treated) Possible source of Sepsis: Pulmonary Sepsis Criteria: Suspected or Documented, Recorded Heart Rate greater than 90 bpm, Recorded Respiratory Rate greater than 20 and Respiratory: Increasing oxygen requirements FOLLOW UP Follow Up: Follow up with primary care provider. TIME SPENT Time Spent in Discharge (Minutes): 35 Discharge Plan Discharge Patient Disposition: Home, Self Care Prescriptions: New Trin[place] Rx 1 60 mg iron-1 mg Tablet 1 tab PO DAILY Qty: 30 0RF thiamine mononitrate (vit B1) 100 mg Tablet 100 mg PO DAILY Qty: 30 0RF amoxicillin-pot clavulanate 875-125 mg tablet 1 tab PO BID 4 Days Qty: 8 0RF No Action No Known Home Medications Activity Restrictions: Activity as Tolerated Diet: Regular Health Concerns: You came in because you were found down. There were concerns that you were going through alcohol withdrawal. We watched you carefully as you went through this. There were also concerns that you had aspirated into your lungs, and this had caused a pneumonia. You have had a fever, and your heart rate has been fast since you have been here. You received IV antibiotics while you are here. We repeated a CT scan of your chest, and it shows that there is still some inflammation in your lungs. I would like you to continue an extended course of antibiotics on discharge. I have sent this to your pharmacy. Please continue to abstain from smoking cigarettes or drinking alcohol. We are glad you are feeling better, thanks for allowing us to take care of you. Print Language: Kazakh Patient Instructions: ED Pneumonia Ch Stand Alone Forms: PCP List"
== END 2025-01-08 13:35 | disposition home or self-care (01) | DRG 871 ==
LOC: MS3 21:09 → ED 21:09 → MS3 01-03 05:57
PROVIDERS: ADMIT Internal Medicine; ATTEND Internal Medicine